=== PATIENT | female | born 1985 | race Caucasian/White ===

== ENCOUNTER 2023-06-19 07:24 | Day surgery (SDC) | payer MEDICAID, SELFPAY ==
[2023-06-19] VITALS (7 sets, daily range): BP systolic 87–111; BP diastolic 53–71; PULSE 57–73; RESP 16; TEMP 36.3–36.8; O2SAT 98–100; BMI 26.3
--- OUTSIDE RECORDS SUMMARY | 2023-06-19 07:27 | XMS_ITS | Continuity of Care Document ---
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 [address] [address], [place], [place], [id number], . tel:[phone] Referring Provider: Arely Madrid MD L, [address] [facility] [address], [place], [address] . tel:[phone] Family History Family Member Type Diagnosis Age At Onset No Information Payers Payer name Insurance type Covered constitution party ID Radha tomlinson(s) Jo-Anncasimiro [facility] [id number] Social History Type Description Quantity Date Captured Comments Sex Female Smoking Status No Information Chief Complaint And Reason For Visit No Information Reason For Referral Reason For Referral No Information History Of Present Illness Encounter Date Complaint History Of Prese nt Illness No Information Functional Status Date Functional Assessmen t No Information Instructions Date Instruction Additional Infor mation No Information Assessments Type Assessment Date No Information Patient Care Teams Name Effective Dates (start - stop) Status Members No Information
--- OUTSIDE RECORDS SUMMARY | 2023-06-19 07:27 | XMS_ITS | Continuity of Care Document ---
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 ICD K50.113. omeprazole 20 mg capsule,delayed release take 1 capsule by mouth 2 times per day before meals - Active Lexapro 10 mg tablet take 1 tablet by oral route every day 10 MG - Active Tylenol 325 mg tablet take 1 tablet by oral route once as needed 325 MG - Active Procedures Procedure Date Routine Serum Collection Routine Serum Collection Colonoscopy Flex; W/bx 1/mx Ugi Endo; W/bx 1/mx Level Iv-surg Path Gross/micro 22 Established Level 4 Routine Serum Collection Routine Serum Collection Bld Ct; Hg/pltlt Ct Auto/compl 21 Hepatic Function Panel Offic/outpt E&m Estab Mod-hi 2 20 Routine Serum Collection C-reactive Prot Vitamin D; 25 Hydroxy Sed Rate, Erythrocyte; Auto Comp Metabolic Panel Bld Ct; Hg/pltlt Ct Auto/compl 20 Telephone E&M III 21-30 Min MICHEL Offic/outpt E&m Estab Mod-hi 2 19 Init Inpt Cons New/est Mod-hi 9 Subsqt Hosp-da E&m Minr Compl 9 Offic/outpt E&m Estab Mod-hi 2 19 Routine Serum Collection Bld Ct; Hg/pltlt Ct Auto/compl 19 Comp Metabolic Panel Offic/outpt E&m Estab Mod-hi 2 19 Routine Serum Collection Bld Ct; Hg/pltlt Ct Auto/compl 19 Hepatic Function Panel C. Difficile Toxin Gene, KELLY Offic/outpt E&m Estab Mod-hi 2 19 Offic/outpt E&m Estab Low-mod 9 Routine Serum Collection Hepatic Function Panel Bld Ct; Hg/pltlt Ct Auto/compl 19 Offic/outpt E&m Estab Mod-hi 2 18 Routine Serum Collection Hepatic Function Panel Offic/outpt E&m Estab Low-mod 7 Routine Serum Collection Colonoscopy Flex; W/bx 1/mx Level Iv-surg Path Gross/micro 17 Immunocytochemistry, Each Antibody Offic/outpt E&m New Mod-hi Routine Serum Collection Ag-immunoassay; Hep B Surface 7 C-reactive Prot Comp Metabolic Panel Bld Ct; Hg/pltlt Ct Auto/compl 17 Sed Rate, Erythrocyte; Auto Advance Directives Directive Yes / No Effective Date File Name No Information Encounters Encounter Description Practice Location Reason(s) For Visit Diagnoses Date Provider Providers Copied on Encounter [facility], [address] [address], [place], [id number], [place] tel:[phone] [facility] No Information 3 Huey Yoo. [address], [place], [place], [address] , [place]. tel: [phone] [facility], [address] [address], [place], [place], [address], [place] tel:[phone] [facility] Ulcerative (chronic) pancolitis without complications 3 Huey Yoo. [address] [facility], [address], [place], [place], [address] , [place]. tel: [phone] Referring Provider: Referral Self. [facility], [address] [address], [place], [place], [address], [place] tel:[phone] [facility] Crohn's disease of large intestine without complications 2 Mercy Mcgee . [address], [address], [place], [place], [address] , [place]. tel: [phone] Referring Provider: Referral Self. [facility], [address] [address], [place], [place], [address], [place] tel:[phone] [facility] No Information 2 Mercy Mcgee . [address] [facility], [address], [place], [place], [address] , [place]. tel: [phone] [facility], [address] [address], [place], [address], [place] tel:[phone] [facility] GI Symptoms or Concerns (chief complaint) Other dysphagiaCrohn's disease of large intestine with fistulaEosinophili c esophagitisCrohn's disease of large intestine with fistula Sep- 2 Mercy Mcgee . [address], [address], [place], [place], [id number] , [place]. tel: [phone] Referring Provider: Referral Self. Established Level 4 [facility], [address] [address], [place], [address], [place] tel:[phone] [facility] GI Symptoms or Concerns (chief complaint) Additional Narrative (chief complaint) Crohn's disease of large intestine with fistulaEsophageal dysphagiaFecal smearing 2 Huey Yoo. [address], [facility] [address], [place], [place], [address] , [place]. tel: [phone] Referring Provider: Referral Self. [facility], [address] [address], [place], [address], [place] tel:[phone] [facility] No Information 2 Luda Anthony. [address] [facility], [facility] [address], [place], [place], [address] , [place]. tel: [phone] [facility], [address] [address], [place], [address], [place] tel:[phone] [facility] Ulcerative (chronic) pancolitis without complications 2 Mercy Mcgee . [address], [facility] [address], [place], [address] , [place]. tel: [phone] Referring Provider: Referral Self. [facility], [address] [address], [place], [address], [place] tel:[phone] [facility] No Information 2 Luda Anthony. [address], [facility] [address], [place], [address] , [place]. tel: [phone] [facility], [address] [address], [place], [address], [place] tel:[phone] [facility] Crohn's disease of large intestine without complications 1 Mecry Mcgee . [address], [facility] [address], [place], [address] , [place]. tel: [phone] Referring Provider: Referral Self. [facility], [address] [address], [place], [id number], [place] tel:[phone] [facility] No Information 1 Mercy Mcgee . [address], [address], [place], [id number] , [place]. tel: [phone] Offic/outpt E&m Estab Mod-hi 2 [facility], [address] [address], [place], [id number], [place] tel:[phone] [facility] GI Symptoms or Concerns (chief complaint) Additional Narrative (chief complaint) Additional Narrative (chief complaint) Crohn's disease of large intestine with fistula 0 Mercy Mcgee . [address] [facility], [facility] [address], [place], [id number] , [place]. tel: [phone] Referring Provider: Referral Self. Telephone E&M III 21-30 Min MICHEL [facility], [address] [address], [place], [id number], [place] tel:[phone] [facility] GI Symptoms or Concerns (chief complaint) Crohn's disease of colon with fistula 0 Mercy Mcgee . [address] [facility], [facility] [address], [place], [address] , [place]. tel: [phone] Referring Provider: Referral Self. [facility], [address] [address], [place], [id number], [place] tel:[phone] [facility] Crohn's disease of large intestine without complications 0 Mercy Mcgee . [address] [facility], [facility] [address], [place], [address] , [place]. tel: [phone] [facility], [address] [address], [place], [id number], [place] tel:[phone] [facility] No Information 0 Mercy Mcgee . [address] [facility], [address], [place], [id number] , [place]. [phone] Offic/outpt E&m Estab Mod-hi 2 [facility], [address] [address], [place], [id number], [place] tel:[phone] [facility] GI Symptoms or Concerns (chief complaint) Additional Narrative (chief complaint) Crohn's disease of colon with fistula 9 Mercy Mcgee . [address] [facility], [address], [place], [address] , [place]. tel:[phone] Referring Provider: Referral Self. Init Inpt Cons New/est Mod-hi [facility], [address] [address], [place], [id number], [place] tel:[phone] [facility] No Information 9 Michell LEXI Shaffer. [address] [facility], [address], [place], [id number] , [place]. tel:[phone] Referring Provider: Genesis Stack MD, [address] [place] [address], [address]. tel:[phone] [facility], [address] [address], [place], [id number], [place] tel:[phone] [facility] Perirectal abscess 9 Mercy Mcgee . [address] [facility], [address], [place], [address] , [place]. tel:[phone] [facility], [address] [address], [place], [id number], [place] tel:[phone] [facility] Rectal pain 9 Mercy Mcgee . [address] [facility], [address], [place], [address] , [place]. tel:[phone] Offic/outpt E&m Estab Mod-hi 2 [facility], [address] [address], [place], [address], [place] tel:[phone] [facility] GI Symptoms or Concerns (chief complaint) Additional Narrative (chief complaint) Ulcerative (chronic) pancolitis without complications 9 Mercy Mcgee . [address] [facility], [address], [place], [place], [address] , [place]. tel: [phone] Referring Provider: Referral Self. Offic/outpt E&m Estab Mod-hi 2 [facility], [address] [address], [place], [address], [place] tel:[phone] [facility] GI Symptoms or Concerns (chief complaint) Ulcerative (chronic) pancolitis without complications 9 Mercy Mcgee . [address] [facility], [address], [place], [place], [address] , [place]. tel: [phone] Referring Provider: Referral Self. [facility], [address] [address], [place], [address], [place] tel:[phone] [facility] Ulcerative (chronic) pancolitis without complications 9 Mercy Mcgee . [address] [facility], [facility] [address], [place], [place], [address] , [place]. tel: [phone] Referring Provider: Referral Self. Offic/outpt E&m Estab Mod-hi 2 [facility], [address] [address], [place], [address], [place] tel:[phone] [facility] GI Symptoms or Concerns (chief complaint) Ulcerative (chronic) pancolitis without complications 9 Keya Tsai. [address] [facility], [address], [facility], [place], [address] , [place]. tel: [phone] Referring Provider: Referral Self. [facility], [address] [address], [place], [address], [place] tel:[phone] [facility] Ulcerative (chronic) pancolitis without complications 9 Mercy Mcgee . [address] [facility], [address], [place], [place], [address] , [place]. tel: [phone] Offic/outpt E&m Estab Low-mod [facility], [address] [address], [place], [address], [place] tel:[phone] [facility] GI Symptoms or Concerns (chief complaint) Additional Narrative (chief complaint) Ulcerative (chronic) pancolitis without complicationsExter nal hemorrhoidsAnal fissure 9 Mercy Mcgee . [address] [facility], [address], [place], [address] , [place]. tel: [phone] Referring Provider: Referral Self. [facility], [address] [address], [place], [address], [place] tel:[phone] [facility] External hemorrhoids 9 Mercy Mcgee . [address] [facility], [address], [place], [place], [address] , [place]. tel: [phone] [facility], [address] [address], [place], [address], [place] tel:[phone] [facility] Ulcerative (chronic) pancolitis without complications 9 Mercy Mcgee . [address] [facility], [address], [place], [place], [address] , [place]. tel: [phone] Referring Provider: Referral Self. Offic/outpt E&m Estab Mod-hi 2 [facility], [address] [address], [place], [address], [place] tel:[phone] [facility] GI Symptoms or Concerns (chief complaint) Additional Narrative (chief complaint) Ulcerative (chronic) pancolitis without complications 8 Mercy Mcgee . [address] [facility], [address], [place], [address] , [place]. tel: [phone] Referring Provider: Referral Self. Offic/outpt E&m Estab Low-mod [facility], [address] [address], [place], [address], [place] tel:[phone] [facility] GI Symptoms or Concerns (chief complaint) Additional Narrative (chief complaint) Ulcerative (chronic) pancolitis without complications Mercy Mcgee . [address] [facility], [facility] [address], [place], [address] , [place]. tel: [phone] Referring Provider: Referral Self. [facility], [address] [address], [place], [address], [place] tel:[phone] [facility] Ulcerative (chronic) pancolitis without complicationsUlcer ative (chronic) pancolitis without complications Mercy Mcgee . [address] [facility], [facility] [address], [place], [address] , [place]. tel: [phone] Referring Provider: Referral Self. [facility], [address] [address], [place], [address], [place] tel:[phone] [facility] Ulcerative (chronic) pancolitis without complications Mercy Mcgee . [address] [facility], [facility] [address], [place], [address] , [place]. tel: [phone] Offic/outpt E&m [facility], [address] [address], [place], [id number], [place] tel:[phone] [facility] GI Symptoms or Concerns (chief complaint) Additional Narrative (chief complaint) Ulcerative pancolitis without complication Mercy Mcgee . [address] [facility], [facility] [address], [facility] [place], [id number] , [place]. tel: [phone] Referring Provider: Referral Self. Family History Family Member Type Diagnosis Age At Onset Father Problem (finding) Alive and well Mother Problem (finding) Alive and well Son Problem (finding) Alive and well Daughter Problem (finding) Alive and well Brother Problem (finding) Alive and well Immunizations Vaccine Date Status Comments SARS-COV-2 (COVID-19) vaccin e, mRNA, spike protein, LNP, preservative free, 100 mcg/0.5mL dose or 50 mcg/0.25mL dose administered Note: [facility] bi -directional interface ; Source: Other Registry SARS-COV-2 (COVID-19) vaccin e, mRNA, spike protein, LNP, preservative free, 100 mcg or 50 mcg dose administered Note: [facility] bi-direct ional interface ; Source: Other Registry SARS-COV-2 (COVID-19) vaccin e, mRNA, spike protein, LNP, preservative free, 100 mcg/0.5mL dose administered Note: [facility] bi-direct ional interface ; Source: Other Registry SARS-COV-2 (COVID-19) vaccin e, mRNA, spike protein, LNP, preservative free, 100 mcg/0.5mL dose or 50 mcg/0.25mL dose administered Note: [facility] bi -directional interface ; Source: Other Registry SARS-COV-2 (COVID-19) vaccin e, mRNA, spike protein, LNP, preservative free, 100 mcg or 50 mcg dose administered Note: [facility] bi-direct ional interface ; Source: Other Registry SARS-COV-2 (COVID-19) vaccin e, mRNA, spike protein, LNP, preservative free, 100 mcg/0.5mL dose administered Note: [facility] bi-direct ional interface ; Source: Other Registry tetanus toxoid, reduced diphtheria toxoid, and acellular pertussis vaccine, adsorbed administered Note: [facility] b i-directional interface ; Source: Other Registry tetanus toxoid, reduced diphtheria toxoid, and acellular pertussis vaccine, adsorbed administered Note: [facility] b i-directional interface ; Source: Other Registry tetanus toxoid, reduced diphtheria toxoid, and acellular pertussis vaccine, adsorbed administered Note: [facility] b i-directional interface ; Source: Other Registry Payers Payer name Insurance type Covered green party ID Radha tomlinson(s) [employer] [facility] [id number] Social History Type Description Quantity Date Captured Comments Alcohol Use Details Unknown Caffeine Use Details Unknown Tobacco Use Status No Information Smoking Status No Information Sex Female Chief Complaint And Reason For Visit No Information Reason For Referral Reason For Referral No Information Plan Of Treatment Date Type Action Status Referral Ordered: EGD With Dilation Appointment date/timeframe: 07/16/2022 ordered Referral Ordered: referred to Otolaryngology oral ulcers- humira vs infection ordered Referral Ordered: follow-up visit 4 Months Appointment date/timeframe: 4 Months ordered Referral Ordered: Financial Counselor Review Appointment date/timeframe: -today ordered Referral Ordered: Flexible Sigmoidoscopy Appointment date/timeframe: -today ordered Referral Ordered: referred to Colon and Rectal Surgery external hemorrhoids ordered Referral Ordered: Start IBD Disease Management Protocol Appointment date/timeframe: -today ordered Referral Ordered: Colonoscopy Appointment date/timeframe: 06/02/2017 ordered Appointment Caroline Rajan BOOKED History Of Present Illness Encounter Date Complaint History Of Prese nt Illness GI Symptoms or Concerns Additional Narrative Diagnosis- Crohn's colitis, penetrating phenotypeEvaluation:Diagnosis at age 19 on colonoscopy, reportedly pancolitis. +ulcers but no chronic features. No treatment started.Colonoscopy 03/07 ([place])- pancolitis with severe active colitis in left colon; +diverticulosis sigmoid/descending/transverse; hepatic flexure stricture; path with normal TI, path throughout colon with active colitis and scarring; no dysplasia; negative for CMV.Thiopurine metabolities 09/06: 6-TGN 269, 6-MMPN 1551Sigmoidoscopy 02/05: moderately severe colitis throughout on azathioprine; Uceris startedColonoscopy 06/09: moderate colitis in the rectosigmoid; otherwise normal with mild scarring in descending/transverseAdalimumab level 2016: 2.3 (low) with negative antibodyAdalimumab level 2018: 5.1 with negative antibodyTwo surgeries for perianal fistulae in 10/12- diagnosis revised to Crohn's diseaseSurgery for perianal fistula 04/12, including colonoscopy by [facility]- chronic colitis in rectum/sigmoid on pathPerianal fistula surgery and seton placement 03/2021Treatment: No treatment at initial diagnosis in - post iron deficiency anemia, prednisone taper followed by Colazal. 2007- recurrent symptoms, fast prednisone taper --> prolonged [id number]- started remicade (+colazal)2010- stopped remicade at end of 2nd ; restarted one year later (no antibodies checked) but developed infusion reaction with rash, itching, hives, and ER visit. 2013- prednisone taper, lialda, canasa, and proctofoam; likely started azathioprine + Humira later that - Uceris added after sigmoidoscopy; stopped azathiprine 10/08 before she became current treatment: Humira 40mg every 2 weeks with lialda 4.8 g2- flare during , incomplete response to budesonide; prednisone low dose (20mg to avoid insomnia) only partially effective.Health Maintenance:No known bone densityLast flu shot- 2017Vitamin D- 23.4 04/09Quantiferon- negative 02/2021Hepatitis B- negative 04/09Pneumovax- does not believe she has received beforeShingles vaccine - not receivedSkin check - none GI Symptoms or Concerns 36-year- old woman with history of Crohn's colitis with fistulizing disease, perivaginal lesions, mouth sores, who presents for a virtual visit for routine follow-up and medication refill. She is normally followed by Dr. Madrid again in our clinic, and was last seen for a clinic visit on 09/20/2020. She does report to me a new symptoms of esophageal dysphagia with foods occasionally over the last 6 months. She reports she has had the vomit back food a couple times. She denies any odynophagia, unexplained weight loss, early satiety, reflux symptoms. She is not taking any new medications. She has never had dysphagia symptoms in the past. She continues to have fistula symptoms every few weeks. She had a fistula surgery and seton placement most recently 1 year ago in 03/2021. She has not had any major issue since then, but every few weeks she does feel little bit of swelling in that area which then drained spontaneously through the fistula with seton. If Her other comp Additional Narrative Diagnosis- Crohn's colitis, penetrating phenotypeEvaluation:Diagnosis at age 19 on colonoscopy, reportedly pancolitis. +ulcers but no chronic features. No treatment started.Colonoscopy 03/07 ([place])- pancolitis with severe active colitis in left colon; +diverticulosis sigmoid/descending/transverse; hepatic flexure stricture; path with normal TI, path throughout colon with active colitis and scarring; no dysplasia; negative for CMV.Thiopurine metabolities 09/06: 6-TGN 269, 6-MMPN 1551Sigmoidoscopy 02/05: moderately severe colitis throughout on azathioprine; Uceris startedColonoscopy 06/09: moderate colitis in the rectosigmoid; otherwise normal with mild scarring in descending/transverseAdalimumab level 2016: 2.3 (low) with negative antibodyAdalimumab level 2018: 5.1 with negative antibodyTwo surgeries for perianal fistulae in 10/12- diagnosis revised to Crohn's diseaseSurgery for perianal fistula 04/12, including colonoscopy by [facility]- chronic colitis in rectum/sigmoid on pathTreatment: No treatment at initial diagnosis in - post iron deficiency anemia, prednisone taper followed by Colazal. 2007- recurrent symptoms, fast prednisone taper --> prolonged [id number]- started remicade (+colazal)2010- stopped remicade at end of 2nd ; restarted one year later (no antibodies checked) but developed infusion reaction with rash, itching, hives, and ER visit. 2013- prednisone taper, lialda, canasa, and proctofoam; likely started azathioprine + Humira later that - Uceris added after sigmoidoscopy; stopped azathiprine 10/08 before she became current treatment: Humira 40mg every 2 weeks with lialda 4.8 g2019- flare during , incomplete response to budesonide; prednisone low dose (20mg to avoid insomnia) only partially effective.Health Maintenance:No known bone densityLast flu shot- 2017Vitamin D- 23.4 04/09Quantiferon- negative 2018Hepatitis B- negative 04/09Pneumovax- unknown Additional Narrative GI Symptoms or Concerns This is a 35-year-old woman who presents in followup for Crohn's colitis, penetrating phenotype. She was initially diagnosed with ulcerative colitis, but then developed perianal symptoms including multiple fistulae during her 1 year ago. She had 2 surgeries in September and her most recent surgery on April 14. Colonoscopy at that time showed inflammation in the rectum and sigmoid with chronic inflammation. Her last followup with Colorectal Surgery was in June. At that time, she was still recovering from her surgery. Her Humira level has been low on 2 occasions and we have discussed increasing to weekly dosing. However, she deferred on that because she has been reluctant to take in more immunosuppressant therapy if possible. However, she feels that she is having worsening drainage and swelling with bowel movements now again. It is not nearly as bad as it was last fall, but she is worried there is some untreated infection present. She does not yet have a followup with GI Symptoms or Concerns This is a 34-year-old woman who presents in follow up for Crohn's colitis, fistulizing phenotype. She has a prior diagnosis of ulcerative colitis. However, she was subsequently diagnosed with perianal symptoms including multiple fistulae, during her last fall. She had surgery for this in September, on 2 occasions and then most recently on April 14. She had a colonoscopy performed at the same time and was found to have inflammation in the rectum and sigmoid colon. Biopsies showed chronic inflammation with cryptitis and crypt abscess formation in these areas as well as granulation tissue with [id number] inflammation in the fistula tracts. She does report improved symptoms since her surgery. She does have another followup appointment on May 30. She still has severe pain after having bowel movements such that she will be in [place] for 5 to 6 hours afterwards. 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 She is currently 26 weeks . She has a prior diagnosis of ulcerative pancolitis with details as noted below. She has had her first flare in nearly 5 years during this . She had ongoing perianal-type symptoms for many months and we had initially discussed referral to Colorectal Surgery, but this was deferred when she found out she was . She had some response to budesonide and low-dose prednisone. However, she has also had ongoing Humira therapy since 2014.Her diagnosis has been revised to her Crohn's colitis based on the development of perianal fistula and abscesses. She had surgery for this in early September and then repeat surgery 13 days ago, due to persistent abscesses. She completed antibiotics 1 week ago.With regard to her colitis, she feels great. She does not have the bleeding or diarrhea symptoms. However, she is still having a numbing sensation down the right leg when she has a maria teresa Additional Narrative Diagnosis- Crohn's colitis, penetrating phenotype (revised from ulcerative pancolitis in Fall 2018)Evaluation:Diagnosis at age 19 on colonoscopy, reportedly pancolitis. +ulcers but no chronic features. No treatment started.Colon[place]07 ([place])- pancolitis with severe active colitis in left colon; +diverticulosis sigmoid/descending/transverse; hepatic flexure stricture; path with normal TI, path throughout colon with active colitis and scarring; no dysplasia; negative for CMV.Thiopurine metabolities 09/06: 6-TGN 269, 6-MMPN 1551Sigmoidoscopy 02/05: moderately severe colitis throughout on azathioprine; Uceris startedColonoscopy 06/09: moderate colitis in the rectosigmoid; otherwise normal with mild scarring in descending/transverseAdalimumab level 2016: 2.3 (low) with negative antibodyAdalimumab level 09/11: 5.1 (low normal) with negative antibodyMRI pelvis 10/12: multiple perianal abscessesSurgery x 2 10/12: drainage of abscessesTreatment: No treatment at initial diagnosis in - post iron deficiency anemia, prednisone taper followed by Colazal. 2007- recurrent symptoms, fast prednisone taper --> prolonged [id number]- started remicade (+colazal)2010- stopped remicade at end of 2nd ; restarted one year later (no antibodies checked) but developed infusion reaction with rash, itching, hives, and ER visit. 2013- prednisone taper, lialda, canasa, and proctofoam; likely started azathioprine + Humira later that - Uceris added after sigmoidoscopy; stopped azathiprine 10/08 before she became current treatment: Humira 40mg every 2 weeks with lialda 4.8 g2- flare during , incomplete response to budesonide; prednisone low dose (20mg to avoid insomnia) only partially effective.10/12: Humira held due to perianal abscesses; slow prednisone taper continuedHealth Maintenance:No known bone densityLast flu shot- 2017Vitamin D- 23.4 04/09Quantiferon- negative 2018Hepatitis B- negative 04/09Pneumovax- unknown Additional Narrative Additional Narrative Diagnosis- ulcerative pancolitisEvaluation:Diagnosis at age 19 on colonoscopy, reportedly pancolitis. +ulcers but no chronic features. No treatment started.Colonoscopy [place]07 ([place])- pancolitis with severe active colitis in left colon; +diverticulosis sigmoid/descending/transverse; hepatic flexure stricture; path with normal TI, path throughout colon with active colitis and scarring; no dysplasia; negative for CMV.Thiopurine metabolities 09/06: 6-TGN 269, 6-MMPN 1551Sigmoidoscopy 02/05: moderately severe colitis throughout on azathioprine; Uceris startedColonoscopy 06/09: moderate colitis in the rectosigmoid; otherwise normal with mild scarring in descending/transverseAdalimumab level 2017: 2.3 (low) with negative antibodyTreatment: No treatment at initial diagnosis in - post iron deficiency anemia, prednisone taper followed by Colazal. 2007- recurrent symptoms, fast prednisone taper --> prolonged [id number]- started remicade (+colazal)2010- stopped remicade at end of 2nd ; restarted one year later (no antibodies checked) but developed infusion reaction with rash, itching, hives, and ER visit. 2013- prednisone taper, lialda, canasa, and proctofoam; likely started azathioprine + Humira later that - Uceris added after sigmoidoscopy; stopped azathiprine 10/08 before she became current treatment: Humira 40mg every 2 weeks with lialda 4.8 g2019- flare during , incomplete response to budesonide; prednisone low dose (20mg to avoid insomnia) only partially effective.Health Maintenance:No known bone densityLast flu shot- 2017Vitamin D- 23.4 04/09Quantiferon- negative 2018Hepatitis B- negative 04/09Pneumovax- unknown GI Symptoms or Concerns This is a 34-year-old woman who presents in followup. She has a history of ulcerative pancolitis on Humira therapy every other week. Unfortunately, during this most recent , she has had a significant flare, the first in about 5 years. She has had difficulty gaining weight. She is currently 20 weeks and reports having a good ultrasound today showing healthy baby. For the flare, we have initially addressed that with Rowasa enema, but it caused pain in her known hemorrhoids. We tried budesonide therapy with incomplete response. We then tried prednisone 20 mg daily due to history of insomnia with higher dose prednisone. She reports that the stools are slightly more formed, like soft serve, but there is still blood and mucus as well as significant abdominal pain. She is having 3 stools per day. She feels ill in general. Her last Humira dose was 2 weeks ago. She had negative Clostridium difficile testing on July 21.The hemorrhoids continued to be symptomatic GI Symptoms or Concerns This is a 34-year-old woman, who has a history of ulcerative pancolitis, presents in followup. She is currently 16 weeks' with her fifth child. She has had a flare in middle of multiple stressors including a divorce and an unplanned with her current boyfriend. She reports that the has been going well, but that she is surprised by the flare as she typically has improved symptoms during . She suspects that stress has been a trigger for her. She has been treated with Humira every other week since 2013. She saw one of my colleagues in followup on July 20 and was started on Uceris. Unfortunately, it was not initially covered by insurance and she only started it 1 week ago. She does feel that symptoms are slowly improving. She has had negative stool testing for Clostridium difficile infection and stool culture. Her weight is down 2 pounds since the last visit and she attributes this to eating less. However, she does not have significant nause GI Symptoms or Concerns This is a pleasant 34-year-old female who presents to clinic today as an urgent appointment for ulcerative colitis flare.The patient is notably 12 weeks' . She has a history of ulcerative pancolitis diagnosed at age 19. She is currently on biweekly Humira monotherapy. She has been on Humira since 2013. She typically follows with Dr. Madrid through our office. Please see Dr. Madrid's note from March 2019 for additional ulcerative colitis history.Patient is currently in the process of going through a divorce. She became and it was unplanned. This is obviously stressful for her and she believes this triggered colitis flare. She notes that since the beginning of May, she started to have progressive ulcerative colitis flare symptoms. Currently, she is having 5 to 10 liquid to loose stools per day with minimal, intermittent rectal bleeding. She is passing mucus in the stool and having rectal urgency. She notes abdominal cramping and lower abdominal cramping Additional Narrative Diagnosis- ulcerative pancolitisEvaluation:Diagnosis at age 19 on colonoscopy, reportedly pancolitis. +ulcers but no chronic features. No treatment started.Colon[place]07 ([place])- pancolitis with severe active colitis in left colon; +diverticulosis sigmoid/descending/transverse; hepatic flexure stricture; path with normal TI, path throughout colon with active colitis and scarring; no dysplasia; negative for CMV.Thiopurine metabolities 09/06: 6-TGN 269, 6-MMPN 1551Sigmoidoscopy 02/05: moderately severe colitis throughout on azathioprine; Uceris startedColonoscopy 06/09: moderate colitis in the rectosigmoid; otherwise normal with mild scarring in descending/transverseTreatment: No treatment at initial diagnosis in - post iron deficiency anemia, prednisone taper followed by Colazal. 2007- recurrent symptoms, fast prednisone taper --> prolonged [id number]- started remicade (+colazal)2010- stopped remicade at end of 2nd ; restarted one year later (no antibodies checked) but developed infusion reaction with rash, itching, hives, and ER visit. 2013- prednisone taper, lialda, canasa, and proctofoam; likely started azathioprine + Humira later that [id number]- Uceris added after sigmoidoscopy; stopped azathiprine 10/08 before she became current treatment: Humira 40mg every 2 weeks with lialda 4.8 gHealth Maintenance:No known bone densityLast flu shot- 2016Vitamin D- 23.4 04/09Quantiferon- negative 04/09Hepatitis B- negative 04/09Pneumovax- unknown GI Symptoms or Concerns This is a 33-year-old woman, who presents in followup for ulcerative pancolitis. I last saw her a year ago when she was in her third trimester of . She gave to a healthy girl by . This was her fourth child. Unfortunately since childbirth, she has been having a lot of issues with what she believes are hemorrhoids. She has 1 stool per day and they are typically soft or mushy. There is intermittent blood on the surface of the stool or with wiping. She wonders if she is having a mild flare of her colitis. However, there is pain around the anus and she can have pain shooting down her leg after having a stool. This occurs every day. There is no issue with her spine or hip joints that she is aware of. She has not been diagnosed with any fissures. She saw a colorectal surgeon, who stated she could not have any hemorrhoid treatment because of her history of ulcerative colitis. Her last colonoscopy in May 2017 showed moderate colitis in the rectosigmoid, but ot GI Symptoms or Concerns This is a 32-year-old woman who presents in followup for ulcerative pancolitis. I last saw her in June of last year. She was diagnosed at age 19. I have captured her prior evaluation and treatment below. She has been on Humira every other week. At last visit, she was having some breakthrough symptoms and we had checked a Humira level and antibody. Unfortunately, her drug level was very low with treatment, although she did not have a positive antibody. She had been considering another and actually became shortly thereafter. I have not seen her since nor was I aware that she was until she made this appointment. We had missing labs and therefore were unable to refill her Humira prescription. Her last dose was on March 13. She reports that her symptoms actually improved significantly at 20 weeks gestation as it has in the past and she is not having any active symptoms of diarrhea, pain or bleeding. She still has some hemorrhoids including one exte Additional Narrative Diagnosis- ulcerative pancolitisEvaluation:Diagnosis at age 19 on colonoscopy, reportedly pancolitis. +ulcers but no chronic features. No treatment started.Colonoscopy [place]/07 ([place])- pancolitis with severe active colitis in left colon; +diverticulosis sigmoid/descending/transverse; hepatic flexure stricture; path with normal TI, path throughout colon with active colitis and scarring; no dysplasia; negative for CMV.Thiopurine metabolities 09/06: 6-TGN 269, 6-MMPN 1551Sigmoidoscopy 02/05: moderately severe colitis throughout on azathioprine; Uceris startedColonoscopy 06/09: moderate colitis in the rectosigmoid; otherwise normal with mild scarring in descending/transverseTreatment: No treatment at initial diagnosis in - post iron deficiency anemia, prednisone taper followed by Colazal. 2007- recurrent symptoms, fast prednisone taper --> prolonged [id number]- started remicade (+colazal)2010- stopped remicade at end of 2nd ; restarted one year later (no antibodies checked) but developed infusion reaction with rash, itching, hives, and ER visit. 2013- prednisone taper, lialda, canasa, and proctofoam; likely started azathioprine + Humira later that - Uceris added after sigmoidoscopy; stopped azathiprine 10/08 before she became current treatment: Humira 40mg every 2 weeks with lialda 4.8 gHealth Maintenance:No known bone densityLast flu shot- 2015Vitamin D- 23.4 04/09Quantiferon- negative 04/09Hepatitis B- negative 04/09Pneumovax- unknown Additional Narrative Diagnosis- ulcerative pancolitisEvaluation:Diagnosis at age 19 on colonoscopy, reportedly pancolitis. +ulcers but no chronic features. No treatment started.Colonoscopy 03/07 ([place])- pancolitis with severe active colitis in left colon; +diverticulosis sigmoid/descending/transverse; hepatic flexure stricture; path with normal TI, path throughout colon with active colitis and scarring; no dysplasia; negative for CMV.Thiopurine metabolities 09/06: 6-TGN 269, 6-MMPN 1551Sigmoidoscopy 02/05: moderately severe colitis throughout on azathioprine; Uceris startedColonoscopy 06/09: moderate colitis in the rectosigmoid; otherwise normal with mild scarring in descending/transverseTreatment: No treatment at initial diagnosis in - post iron deficiency anemia, prednisone taper followed by Colazal. 2007- recurrent symptoms, fast prednisone taper --> prolonged [id number]- started remicade (+colazal)2010- stopped remicade at end of 2nd ; restarted one year later (no antibodies checked) but developed infusion reaction with rash, itching, hives, and ER visit. 2013- prednisone taper, lialda, canasa, and proctofoam; likely started azathioprine + Humira later that - Uceris added after sigmoidoscopy; stopped azathiprine 10/08 before she became current treatment: Humira 40mg every 2 weeks with lialda 2.4 gHealth Maintenance:No known bone densityLast flu shot- 2015Vitamin D- 23.4 04/09Quantiferon- negative 04/09Hepatitis B- negative 04/09Pneumovax- unknown GI Symptoms or Concerns This is a 32-year-old woman, who presents in followup for ulcerative pancolitis. She was diagnosed at age 19, and I have captured majority of her prior treatment and evaluations below. She presents in followup after recent colonoscopy, which showed active disease in the rectum and sigmoid. She has been taking Lialda only intermittently together with her Humira and has not noticed a significant improvement in symptoms when she is taking the Lialda two pills per day now. She often has some blood with her stools. She does have hemorrhoids as well by her report. They were not seen on the exam specifically. She does not have a stool even every day and they can be variable in consistency. When she has her menstrual cycle, she will have significant worsening of symptoms during the first two days of her menses. She has a lot of pain, is unable to function and has a bulging pressure even into the thighs that occurs at that point. She has had three children and continues to have unprot GI Symptoms or Concerns This is a 31-year-old woman, who presents to [facility]. She has a prior diagnosis of ulcerative pancolitis. This was diagnosed at the age of 19, although initially she did not have any treatment. I tried to capture the results that I have from her prior evaluation in my note. She has been treated with balsalazide, but ultimately moved to Remicade. She had an infusion reaction after restarting it after about a year without Remicade, and then transitioned to Humira and azathioprine. She stopped the azathioprine before her third and has done quite well on the Humira every other week. She reports for the past two months, she feels that she is having a mild flare. There is some blood intermittently. She typically has up to two stools per morning. This is inconsistent and there is no abdominal pain. Her energy is good and she denies tenesmus. Symptoms seem to worsened just before her menstrual cycle. She continues to nurse a nine-month old and plans to continue nursi Additional Narrative Diagnosis- ulcerative pancolitisEvaluation:Diagnosis at age 19 on colonoscopy, reportedly pancolitis. +ulcers but no chronic features. No treatment started.Colonoscopy 03/07 ([place])- pancolitis with severe active colitis in left colon; +diverticulosis sigmoid/descending/transverse; hepatic flexure stricture; path with normal TI, path throughout colon with active colitis and scarring; no dysplasia; negative for CMV.Thiopurine metabolities 09/06: 6-TGN 269, 6-MMPN 1551Sigmoidoscopy 02/05: moderately severe colitis throughout on azathioprine; Uceris startedTreatment: No treatment at initial diagnosis in - post iron deficiency anemia, prednisone taper followed by Colazal. 2007- recurrent symptoms, fast prednisone taper --> prolonged [id number]- started remicade (+colazal)2010- stopped remicade at end of 2nd ; restarted one year later (no antibodies checked) but developed infusion reaction with rash, itching, hives, and ER visit. 2013- prednisone taper, lialda, canasa, and proctofoam; likely started azathioprine + Humira later that - Uceris added after sigmoidoscopy; stopped azathiprine 10/08 before she became current treatment: Humira 40mg every 2 weeks Health Maintenance:No known bone densityLast flu shot- 2015Vitamin D- pendingQuantiferon- [place]neumovax- unknown if received Functional Status Date Functional Assessmen t No Information Instructions Date Instruction Additional Infor micah Eosinophilic Esophagitis Related to Other dysphagia 1. Esophageal dyspha amandeep. - schedule upper endoscopy with esophageal biopsies and dilation. 2. Crohn's disease with fistulizing disease. - continue adalimumab every 2 weeks for now. -we will assess for active disease on endoscopies. - consider medication changes, including possible addition of thigh appearing and increasing frequency of adalimumab every week if there is evidence of active inflammation on colonoscopy or if continued recurrent fistula symptoms. -follow-up in 1 year. 3. Stool leakage after bowel movements. - continue pelvic floor exercises. -if no improvement with pelvic floor exercises, would contact colorectal surgery again. 4. Health maintenance. -pneumonia vaccines at next in person visit -yearly flu vaccine recommended - shingles vaccine ( shingrix) recommended - skin check with dermatology recommended. Related to Crohn's disease of large intestine with fistula We will check basic blood work today including chemistries, vitamin D level, inflammatory markers, and also check her adalimumab level. This is 10 days from her prior injection and will give us a good idea of her trough level. I will refer her to ENT for further evaluation of her mouth sores and she will also follow up with Colorectal Surgery and Gynecology. I would like her to update me with regard to these upcoming appointments and then once she is cleared of active infection by Colorectal Surgery, and ENT is waiting on the possibility for drug-related oral ulcers, we can consider increasing her Humira to weekly dosing. This has already been approved by insurance as of March 31. Followup will be in 3 months, although further recommendations will come after the above referrals have been completed. Related to Crohn's disease of large intestine with fistula We discussed various aspects to pain management for her. A tricyclic medication could help with nerve signaling, but unfortunately is contraindicated with nursing. There is the option for gabapentin as well. I am very hesitant to recommend narcotic therapy aside from just related to her postoperative recovery and I defer this to her surgeon. Down the road, especially if she has fully recovered from the surgery itself, I do believe we may need to increase her Humira to weekly dosing to achieve better therapeutic benefit. This could possibly help with her pain, as we reduce inflammation.We will plan to have her touch base with me following her upcoming appointment with her surgeon. Followup will be in fall, although further recommendations will come after we get input from her surgeon. Related to Crohn's disease of colon with fistula I recommended that s he follow up with her colorectal surgeon and director cost today and then inform me of their recommendations. In particular, I defer to the colorectal surgeon on when to start Humira, based on their assessment of the prior infection and its resolution. Assuming that we restart it in the coming week, we would then plan to continue until about 36 weeks when she would discontinue, in anticipation for a delivery via at 39 weeks.She will continue to slowly taper her prednisone as she has been doing. She is currently at 20 mg daily. Next week, she will taper to 15 mg and as long as she continues to do well with regard to her bowel symptoms, we will continue the taper as tolerated.If she has persistent fistulae and abscesses at her current Humira dose, we may need to consider weekly dosing. Her last level was in the lower range at 5.1 with a negative antibody. Of course, this has been deferred due to the aforementioned infection. I will plan to see her again in 8 weeks in followup. Related to Crohn's disease of colon with fistula I will check stool f or C. diff infection. I will perform basic blood work today including blood counts, chemistries and liver tests. We will also check adalimumab level and antibody. We will increase her prednisone therapy to 40 mg daily for 2 weeks and then taper by 5 mg each week. In the meanwhile, if her adalimumab level is low, I would consider increasing the frequency of her Humira to inject every week rather than every 2 weeks. I will arrange for followup appointment in clinic in about a month to review her response to the above.If she becomes dizzy, weak or has worsening symptoms, she would need to go to the hospital. We discussed the possibility for intravenous steroids or even a sigmoidoscopy to evaluate for CMV infection and to assess ongoing inflammation. I am hopeful that we will not have to perform endoscopic evaluation during her , but this is something to consider for the future. Related to Ulcerative (chronic) pancolitis without complications We will continue her Humira at the current dose every other week. We will continue her Uceris 9 mg daily. I have asked her to contact me with an update in 1 to 2 weeks. If she is not responding to Uceris, we may need to change to prednisone. I would consider a lower dose of 20 mg daily because she has had previous anxiety and sleep deprivation with higher dose prednisone. Certainly, the other option is to increase Humira frequency to every week. However, we both agreed that we would save that for down the road if symptoms persist. We also discussed the possibility for a sigmoidoscopy at the hospital, should she fail treatments, to perform biopsies for CMV and to assess severity of disease. I will plan to see her again in 6 weeks and then again in 12 weeks.Her current delivery is planned for 39 weeks with section. We will try to time her final Humira injection for around 27 weeks, so that her levels are at the lowest possible for the delivery itself. We would then restart treatment as long as there are no complications from the section. She is aware that her will not be able to receive live vaccinations for 6 months after delivery.Thank you for involving me in her care. Related to Ulcerative (chronic) pancolitis without complications I reviewed the optio n of topical mesalamine, which would be safe in . The patient does not believe she will be able to retain enemas and this likely will cause her significant increased rectal discomfort. She is willing to try a few enemas to see how she tolerates it. I was able to contact Dr. Madrid regarding this patient. After review, treatment with Uceris was recommended. It is of note prescription for 8-week course, however, this can be tapered quicker if needed. I recommended a close followup with Dr. Madrid in 3 weeks. Our office will help arrange. I also stressed the importance of collecting stool sample to rule out C. diff and routine enteric pathogens. She reports that it would be very difficult for her to send in the sample, but she will try her best. Related to Ulcerative (chronic) pancolitis without complications I would like to aide t her anal fissure with nifedipine ointment as well as topical lidocaine for discomfort. After 3 to 4 weeks, I have asked her to contact me with an update on symptoms. Her stools are already soft and so I do not see the need to add a stool softener or change in fiber. If she continues to have external symptoms from the hemorrhoids themselves, I would recommend a sigmoidoscopy to evaluate for underlying rectal inflammation. There is no underlying rectal inflammation. There is a possibility to see another colorectal surgeon to discuss whether there are any treatments for the hemorrhoids that could be considered, such as surgery or banding. This is very difficult because of the underlying inflammatory disease. Our group does not recommend hemorrhoid banding in that case, but I do know it is the fact that she is having significant symptoms and that we should consider all options for her to help with quality of life. Related to Ulcerative (chronic) pancolitis without complications We will perform lab work today. We discussed the pros and cons of an additional dose of Humira. I would like to see what the labs show and then she will contact her pharmacist to see when the earliest would be that she could receive her prescription. We discussed the possibility for 1 final injection at about 35 to 36 weeks and then plan for delivery. Once she is recovered from her caesarean section and her clean up worker agrees and we can restart Humira again as an outpatient. It is believed to be compatible with nursing and we discussed this. Certainly, her will not be able to receive any live vaccinations until 6 months of age because some medication may cross the placenta. I have arranged for followup as noted below. I have asked her to keep in touch if any symptoms change to suggest a flare. Normally, I would have insisted that we see each other during the 2nd trimester to help plan some of these medication changes and so I feel I was a bit surprised by her and so late into her 3rd trimester that it is a little more difficult to come up with a clear plan for her. Related to Ulcerative (chronic) pancolitis without complications We will continue her Humira for now, although she will try injections in her thigh to see if that is better tolerated. We will continue her Lialda at the current dose and I have advised that we try Rowasa enemas for several weeks to see if that is tolerated and helps with symptoms. If not, we could consider hydrocortisone enemas. Otherwise, the next step would be to increase her Lialda to four pills per day to see if that is helpful. In the meanwhile, we will check a Humira level and antibody today because she is due for her next injection now and we can get a good evaluation of her trough level. If she stops having the injection site reactions by changing the location of injections, and her trough level is very low, but there is no antibody, I would consider increasing her dosing to every week. If she has developed antibodies and continues to have injection site reactions such that we need to consider other medications, I would consider looking into Entyvio and we briefly discussed this today. I have arranged for a followup appointment in six months for routine maintenance, although further recommendations will follow the results of her lab testing and the medication change. If she has ongoing symptoms, of course, I will see her sooner, as quickly as one to two months from now.For next visit, especially once we have achieved a sense of remission, I will need to confirm her Pneumovax status and bone density testing. She is also going to look into our handout on inflammatory bowel disease and nutrition to see if she can find any triggers for her. We briefly discussed turmeric and VSL #3, which have been looked at as adjuvant therapies for ulcerative colitis in some patients with milder disease. Related to Ulcerative (chronic) pancolitis without complications IBD and Nutrition Related to c erative (chronic) pancolitis without complications Entyvio (vedolizumab) Related to Ulcerative (chronic) pancolitis without complications Colon Cancer Prevention Related to Ulcerative (chronic) pancolitis without complications I will need to revie w further records from the past including her vaccination status, bone density testing, and lab work. We will recheck basic labs today as well as inflammatory markers, vitamin D level, and her QuantiFERON Gold and hepatitis B status. Once her QuantiFERON and hepatitis B status are clarified, we can send her for Humira prescription. I will start her back on Lialda 2.4 g daily with a plan to increase up to 4.8 g daily as tolerated. I will also arrange for a surveillance colonoscopy exam for dysplasia biopsies to occur in the next several months. I will plan to see her again in about three months' time to see how she is doing. I will address bone density testing with her next visit, if it has not been performed previously and we will also clarify her Pneumovax status. I have asked her to contact me should anything worsen with her symptoms. I did give her stool chemistries today to check for infection should the diarrhea worsen. Related to Ulcerative pancolitis without complication Colonoscopy Related to Ulcer ative (chronic) pancolitis without complications Assessments Type Assessment Date No Information Patient Care Teams Name Effective Dates (start - stop) Status Members No Information
[2023-06-19] MEDS: LACTATED RINGERS 1000 ML 1,000 ML 100 ML IV (07:35)
[2023-06-19 08:01] LABS: Ur HCG Qualitative* Negative (Negative)
[2023-06-19] MEDS: SODIUM CHLORIDE 0.9 % (FLUSH) 10 ML SYRINGE IVF (08:13)
--- NOTE | 2023-06-19 08:27 | W.PM.H&PU ---
History & Physical Update History & Physical Update H&P Reviewed and patient assessed: No changes noted H&P Updates: Gen - NAD Heart - RRR / no M/R/G Lungs - CTAB
--- NOTE | 2023-06-19 09:35 | W.ANESCHARGE ---
Anesthesia Charges Start Date/Time Anesthesia Start Date: 06/19/23 Anesthesia Start Time: 09:13 Stop Date/Time Anesthesia Stop Date: 06/19/23 Anesthesia Stop Time: 10:02
[2023-06-19] MEDS: LIDOCAINE 1% MDV 10 ML INJECTION (09:47)
--- NOTE | 2023-06-19 09:54 | W.ANESCHARGE ---
Anesthesia Charges Start Date/Time Anesthesia Start Date: 06/19/23 Anesthesia Start Time: 09:13 Stop Date/Time Anesthesia Stop Date: 06/19/23 Anesthesia Stop Time: 10:02
--- NOTE | 2023-06-19 10:06 | W.PM.GYNPROC ---
Procedure Note Date of procedure: 06/19/23 Pre-op diagnosis: Persistent intermenstrual spotting, suspected endometrial polyps on recent Post-op diagnosis: other ( persistent intermenstrual spotting) Procedure: Hysteroscopy, dilation and curettage, insertion of Mirena IUD Anesthesia: MAC and local ( paracervical block with 10 mL of 1% lidocaine) Complications: none Surgeon: Dr. Angelita Gonzalez MD Estimated blood loss (mL): 5 IV fluids (mL): 500 Urine Output (mL): 50 Pathology: specimen obtained, sent to pathology Condition: stable Disposition: same day Findings: 1. Upon pelvic exam under anesthesia, vagina and cervix were normal in appearance. Uterus was mobile, anteverted, and of normal size and texture. There were no palpable Adnexal masses. 2. Upon Hysteroscopy, survey the endocervix was normal. Survey of the uterus revealed an irregular texture or of the endometrium. The endometrial cavity shape was normal, as were bilateral tubal ostia. Uterus sounded to 10 cm. Procedure Description: Saline deficit: 305 mL Procedure in detail: Patient was taken to the operating room with IV running. She was positioned in dorsal lithotomy position with her legs fully supported in Yellofin stirrups. Monitored anesthesia care was administered. She was prepped and draped in the usual sterile fashion. Exam under anesthesia was performed for the above-noted findings. Speculum was inserted. Cervix visualized and grasped along the anterior lip with An Allis clamp. Cervix was serially dilated to accommodate the TRUCLEAR hysteroscope. This was assembled with saline inflow and outflow in place. The hysteroscope was advanced through the cervix into the endometrial cavity for the above noted findings. The tissue morcellator was then inserted through the operating channel. Window lock was performed. Under direct visualization, the endometrial cavity was circumferentially curetted with the tissue morcellator. The hysteroscope and morcellator were then removed from the uterus. Uterus sounds to 10 cm. The IUD is loaded into the insertion tube, inserted to the sounded depth, and the IUD is deployed. Insertion tube was removed. Strings are trimmed to 3 cm. Allis clamp was removed from the anterior lip of the cervix. Hemostasis was noted. Patient tolerated procedure well. She was taken to recovery area in stable condition.
--- NOTE | 2023-06-19 12:10 | SUR.PHASEII ---
Patient contacted by telegraphic typewriter operator via phone notifying her that Dr. Gonzalez had electronically sent in hydrocodone[facility]aminophen [facility]. Gonzalez stated she had not found any polyps, relayed to patient. Per Dr. Gonzalez, patient may resume intimacy after post op 2 weeks for mirena to be effective.
== END 2023-06-19 11:18 | disposition home or self-care (01) ==
PROVIDERS: PCP Physician Assistant Medical; Visit Provider Obstetrics & Gynecology
PROC: 0UDB8ZZ Extraction of Endometrium, Via Natural or Artificial Opening Endoscopic (ICD-10-PCS; CPT 58558; principal; 2023-06-19 08:45)
DX: N92.0 Excessive and frequent menstruation with regular cycle (principal); Z30.430 Encounter for insertion of intrauterine contraceptive device
CPT/HCPCS: 58300; 58558; 00952; 36415; 81025; 86850; 86900; 86901; 88305; J1100; J1885; J2250; J2405; J2704; J3010; J7120; J7298

== ENCOUNTER 2024-06-23 11:54 | Outpatient (CLI) | payer OTHER, SELFPAY ==
--- OUTSIDE RECORDS SUMMARY | 2024-06-23 11:58 | XMS_ITS ---
Author Organization [facility] Address [address] [place] [address] Care Team Providers Care Information Assoc Name Role Phone Unavailable Unavailable Unavailable Surgery Details Not on file Complications Check Surgery Details section. Procedure Estimated Blood Loss Check Surgery Details section. Procedure Findings Check Surgery Details section. Procedure Specimens Taken Check Surgery Details section.
--- OUTSIDE RECORDS SUMMARY | 2024-06-23 11:58 | XMS_ITS | Referral Summary ---
Author Organization [facility] Address [address] [place] [id number] Care Team Providers Care Social Human Services Assistants Name Role Phone Elsewhere, Pcp Primary Care Provider Unavailabl e Source Comments Patient records contain information from all sites at [facility]. For routine questions regarding patient records, call [phone] during business hours, M-F 8:00 AM - 5:00 PM Central Time. Record requests for emergency care only can be directed to [phone] at any time.[facility] Allergies Active Allergy Reactions Criticality Noted Date Comments Infliximab Hives (Reselect Reaction),Itching,Ra sh,Swelling High 04/08/2016 numbness Nsaids (Non-Steroidal Anti-Inflammatory Drug) Other (see comments) 12/27/2022 Crohns, ulcerative colitis Medications Medication Sig Dispensed Refills Start Date End Date Status vit calc,iron,folic ( VITAMIN ORAL) Take 1 tablet by mouth daily. Active adalimumab (HUMIRA PEN) 40 mg/0.8 mL pen injector kit 40 mg. 11/22/2016 Active escitalopram (LEXAPRO) 10 mg tablet Take 10 mg by mouth daily. Active norelgestromin-ethiny l estradiol (XULANE) 150-35 mcg/[address] 1 patch on the skin once a week. Apply 1 patch each week for 3 weeks, then remove for 1 week. Active HYDROcodone-acetamino phen (NORCO) 5-325 mg per tabletIndications:Acu te Pain Take 1 tablet by mouth every 6 (six) hours as needed for pain Indication: Acute Pain. 12 tablet 01/02/2023 Active Active Problems Problem Noted Date Diagnosed Date Gallstone 12/27/2022 Overview (12/27/2022): Added automatically from request for surgery [id number] Colitis Ulcerative Social History Tobacco Use Types Packs/Day Years Used Date Smoking Tobacco: Former Smokeless Tobacco: Never Tobacco Cessation:Counseling Given: Not Answered Alcohol Use Standard Drinks/Week Comments Yes 1 (1 standard drink = 0.6 oz pur e alcohol) Nutrition Answer Date Recorded Nutrition: EVOO Fat Source Unknown 01/26 Nutrition: Servings of Fruits/Vegetables per Day Not on file 01/26/2021 Dental Answer Date Recorded Dental: Regular Dentist Unknown 01/27/20 21 Sex and Gender Information Value Date Recorded Sex Assigned at Not on file Gender Identity Not on file Sexual Orientation Not on file Last Filed Vital Signs Vital Sign Reading Time Taken Comments Blood Pressure 117/73 01/09/2023 7:15 PM FRAME TABLE OPERATOR HELPER Pulse 76 01/09/2023 7:15 PM FRAME TABLE OPERATOR HELPER Temperature 37.2 ??C (99 ??F) 01/09/2023 4:35 PM FRAME TABLE OPERATOR HELPER Respiratory Rate 18 12/27/2022 6:15 PM FRAME TABLE OPERATOR HELPER Oxygen Saturation 98% 01/09/2023 7:15 PM FRAME TABLE OPERATOR HELPER Inhaled Oxygen Concentration - - Weight 68.4 kg (150 lb 12.7 oz) 01/09/2023 4:36 PM FRAME TABLE OPERATOR HELPER Height 162.6 cm (5' 4) 01/09/2023 4:36 PM FRAME TABLE OPERATOR HELPER Body Mass Index 25.88 01/09/2023 4:36 PM FRAME TABLE OPERATOR HELPER Plan of Treatment Not on file Medical Devices Implanted Type Area Welder Oxyhydrogen Device Identifier Shelf Expiration Date Model / Serial / Lot Clp Hmol Plmr Lg - [id number] Implanted:Qt y: 6 on 12/27/2022 by Daniel Shirley M.D. at [facility] Hardware e.g. pins/screws /rods N/A: [employer] [id number] 01/08/2026 [id number] / / [id number] Advance Directives For more information, please contact: [phone] * Full Code (Latest Code Status on File) Date Activated Date Inactivated Comments 12/27/2022 1:28 PM 12/27/2022 8:46 PM Question Answer Comments Full Code: Discussed Care Teams Social Human Services Assistants Relationship Specialty Start Date End Date Elsewhere, Pcp PCP - General 12/13/19
--- OUTSIDE RECORDS SUMMARY | 2024-06-23 11:58 | XMS_ITS | Clinical Summary ---
Author Organization [facility] Address [address] [place] [address] Care Team Providers Care Student Development Specialist Name Role Phone Elsewhere, Pcp Primary Care Provider Unavailabl e Source Comments Patient records contain information from all sites at [facility]. For routine questions regarding patient records, call [phone] during business hours, M-F 8:00 AM - 5:00 PM Central Time. Record requests for emergency care only can be directed to [phone] at any time.[facility] Allergies Active Allergy Reactions Criticality Noted [...] (12/27/2022): Added automatically from request for surgery [id number] Colitis Ulcerative Social History Tobacco Use Types [...] Comments Blood Pressure 117/73 01/09/2023 7:15 PM SPECIAL WARFARE COMBATANT CREWMAN Pulse 76 01/09/2023 7:15 PM SPECIAL WARFARE COMBATANT CREWMAN Temperature 37.2 ??C (99 ??F) 01/09/2023 4:35 PM SPECIAL WARFARE COMBATANT CREWMAN Respiratory Rate 18 12/27/2022 6:15 PM SPECIAL WARFARE COMBATANT CREWMAN Oxygen Saturation 98% 01/09/2023 7:15 PM SPECIAL WARFARE COMBATANT CREWMAN Inhaled Oxygen Concentration - - Weight 68.4 kg (150 lb 12.7 oz) 01/09/2023 4:36 PM SPECIAL WARFARE COMBATANT CREWMAN Height 162.6 cm (5' 4) 01/09/2023 4:36 PM SPECIAL WARFARE COMBATANT CREWMAN Body Mass Index 25.88 01/09/2023 4:36 PM SPECIAL WARFARE COMBATANT CREWMAN Plan of Treatment Health Maintenance Due Date Last Done Comments Cervical Cancer Screening 1985 HIV Screening 1985 Hepatitis C Screening 1985 Lipid (Cholesterol) Screening 1985 Pneumococcal vaccine (0-64 years) (1 of 2 - PCV) 1991 Hepatitis B Vaccines (1 of 3 - 19+ 3-dose series) 2004 COVID-19 Vaccine (3 - Modern a risk series) 02/16/2021 01/19/2021, 12/22/2020 Depression Screening (Annual PHQ-2) 11/24/2023 Influenza Vaccine (#1) 2024 DTaP,Tdap,and Td Vaccines (4 - Td or Tdap) 11/09/2029 11/09/2019, 02/16/2018, 04/24/2016 HPV Vaccines Aged Out No longer eligi ble based on patient's age to complete this topic Medical Devices Implanted Type Area Janitorial Cleaner Device Identifier Shelf Expiration Date Model / Serial / Lot Clp Hmol Plmr Lg - [id number] Implanted:Qt y: 6 on 12/27/2022 by Daniel Shirley M.D. at [facility] Hardware e.g. pins/screws /rods N/A: [employer] [id number] 01/08/2026 [id number] / / [id number] Advance Directives For more information, please contact: [phone] * Full Code (Latest Code Status on File) Date Activated Date Inactivated Comments 12/27/2022 1:28 PM 12/27/2022 8:46 PM Question Answer Comments Full Code: Discussed Care Teams Student Development Specialist Relationship Specialty Start Date End Date Elsewhere, Pcp PCP - General 12/13/19
--- OUTSIDE RECORDS SUMMARY | 2024-06-23 12:00 | XMS_ITS | Clinical Summary ---
Author Organization [facility] Address [address] [place] [address] Care Team Providers Care Kitchen Operator Name Role Phone No Ref-Primary, Physician Primary Care Provider Allergies Active Allergy Reactions Criticality Noted Date Comments Infliximab Hives,Other (See Comments),Itching,Rash,S welling High 01/09/2016 Other reaction(s): Other: RASH/HIVES/NUMB numbness numbness Medications Medication Sig Dispensed Refills Start Date End Date Status Misc. Devices (BREAST PUMP) MISCIndications:S/ P section 1 each as needed 1 each 05/03/2018 Active adalimumab (HUMIRA) 40 MG/0.8ML prefilled syringe kit Inject 40 mg Subcutaneous every 7 days Active acetaminophen (TYLENOL) 325 MG tabletIndications: S/P section Take 2 tablets (650 mg) by mouth every 4 hours as needed for other (multimodal surgical pain management along with NSAIDS and opioid medication as indicated based on pain control and physical function.) 01/23/2020 Active norelgestromin-eth inyl estradiol (ORTHO EVRA) 150-35 MCG/24HR patch Place 1 patch onto the skin once a week Remove old patch and apply new patch onto the skin once a week for 3 weeks (21 days). Do not wear patch week 4 (days 22-28), then repeat. Active oxyCODONE (ROXICODONE) 5 MG tabletIndications: Anal fistula Take 1 tablet (5 mg) by mouth every 6 hours as needed for moderate to severe pain 18 tablet 04/06/2021 Active Active Problems Problem Noted Date Diagnosed Date S/P section 01/20/2020 Perirectal abscess 09/28/2019 Previous delivery, antepartum condition or complication 05/01/2018 Resolved Problems Problem Noted Date Diagnosed Date Resolved Date S/P section 05/01/2018 019 Immunizations Name Administration Dates Next Due TDAP Vaccine (Boostrix) 02/16/2018,04/24/2016 Social History Tobacco Use Types Packs/Day Years Used Date Smoking Tobacco: Former Cigarettes Q uit: 2011 Smokeless Tobacco: Never Alcohol Use Standard Drinks/Week Comments Yes 0 (1 standard drink = 0.6 oz pur e alcohol) 2 bottles of wine per week [place] Depression Scale Answer Date Recorded [place] Depression Score 0 01/22/2020 Last EPDS Self Harm Result Not on file Adolescent Education Answer Date Record ed Getting School Help Needed Not on file 09/07 Sex and Gender Information Value Date Recorded Sex Assigned at Not on file Gender Identity Not on file Sexual Orientation Not on file Last Filed Vital Signs Vital Sign Reading Time Taken Comments Blood Pressure 115/67 04/06/2021 3:05 PM CDT Pulse 94 04/06/2021 3:05 PM CDT Temperature 36.4 ??C (97.5 ??F) 04/06/2021 3 :05 PM CDT Respiratory Rate 16 04/06/2021 3:05 PM CDT Oxygen Saturation 99% 04/06/2021 3:0 5 PM CDT Inhaled Oxygen Concentration - - Weight 62.1 kg (136 lb 12.8 oz) 04/06/2021 9:19 AM CDT Height 162.6 cm (5' 4) 04/14/2020 1:43 PM CDT per patient Body Mass Index 23.48 04/14/2020 1:43 PM CDT Plan of Treatment Not on file Advance Directives For more information, please contact: [phone] * Full Code (Latest Code Status on File) Date Activated Date Inactivated Comments 09/28/2019 3:59 PM 09/29/2019 4:37 PM Question Answer Comments Code status determined by: Discussion with vimal nt/legal decision maker Care Teams Kitchen Operator Relationship Specialty Start Date End Date No Ref-Primary, Physician PCP - General 04/06/21
--- OUTSIDE RECORDS SUMMARY | 2024-06-23 12:00 | XMS_ITS | Clinical Summary ---
Author Organization [facility] Address [address] [place] [address] Care Team Providers Care Flasher Adjuster Name Role Phone Needs Pcp, Assignment Primary Care Provider [phone] Source Comments You are receiving this document as you are listed as the primary care provider,follow-up provider, or the patient has been referred to you for consultation.This is in compliance with the Medicare and[facility] E[facility] Incentive Program,which states Providers who transition their patient to another setting of careor provider of care or refers their patient to another provider of care shouldprovide summary care record for each transition of care or referral. [facility] Allergies Active Allergy Reactions Criticality Noted Date Comments Infliximab Rash,Itching,Swelling High 04/08/2016 Medications Medication Sig Dispensed Refills Start Date End Date Status HUMIRA PEN 40 MG/0.8ML pen injector INJECT 40 MG UNDER THE SKIN EVERY OTHER WEEK 6 Each 1 11/22/2016 Active Norelgestromin-Eth Estradiol (ORTHOEVRA) 150-35 MCG/24HR patchIndications:Enco unter for initial prescription of contraceptive pills Apply 1 Patch to skin once every week. Will need an appointment for further refills. Please call [phone] to schedule. 12 Patch 09/21/2021 Active Active Problems Problem Noted Date Diagnosed Date Anemia during in third trimester 11/10 Abnormal O'Haro glucose challenge test, ante 11/10/2019 Perirectal abscess 09/28/2019 Crohn's disease of colon without complication Previous section complicating 08/16/2019 Hemorrhoids 06/18/2019 Supervision of high risk , antepartum 0 06/18/2019 History of polyhydramnios 06/18/2019 Unplanned 06/18/2019 Atypical squamous cells of u ndetermined significance on cytologic smear of cervix (ASC-US) 12/24/2018 Overview: CCS Review: History: 11/2015: NILM HPV neg (per media review) 11/2018: ASCUS HPV neg Plan, per ASCCP guidelines: Repeat co-test in 3 years (2021) History of 12/16/2017 Overview: C/section x 3 Hereditary disease in family possibly affecting fetus, affecting management of mother in 02/16/2016 Overview: first child with tracheal kink requiring supplemental oxygen after Chronic universal ulcerative colitis 01/04/2008 Overview: Colitis Ulcerative Colitis Pancolonic Anxiety state 01/04/2008 Overview: Anxiety NOS Resolved Problems Problem Noted Date Diagnosed Date Resolved Date Anemia during in third trimester 02/17/2018 06/18/2019 Low-lying placenta in second trimester 12/16/2017 03/30/2018 Overview: The edge of the posterior placenta abuts the internal os. 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 Encounter for supervision of normal in second trimester 04/08/2016 12/16/2017 Constipation 04/08/2016 12/16/2017 Suspected damage to fetus fr om drugs, affecting management of mother 02/16/2016 8 Immunizations Name Administration Dates Next Due TDAP (BOOSTRIX) 04/24/2016 Tdap 11/09/2019,02/16/2018 Family History Medical History Relation Name Comments Depression Mother Depression Maternal Grandmother Diabetes Paternal Grandfather Relation Name Status Comments Father Alive Mother Alive Brother Alive Maternal Grandfather Alive Maternal Grandmother Alive Paternal Grandfather Alive Paternal Grandmother Alive Social History Tobacco Use Types Packs/Day Years Used Date Smoking Tobacco: Former Smokeless Tobacco: Never Comments:Quit smoking: Alcohol Use Standard Drinks/Week Comments Yes 0 (1 standard drink = 0.6 oz pur e alcohol) occ AUDIT-C Answer Date Recorded Q1: How often do you have a drink containing alc ohol? Never 03/24/2021 Average Number of Drinks Not on file 021 Frequency of Binge Drinking Not on file 11/2020 Depression Answer Date Recor ded Last EPDS Total Score 0 06/10/2020 Last EPDS Self Harm Result 0-->never 06/10 Sex and Gender Information Value Date Recorded Sex Assigned at Not on file Gender Identity Not on file Sexual Orientation Not on file Last Filed Vital Signs Vital Sign Reading Time Taken Comments Blood Pressure 102/64 03/24/2021 10:00 AM CDT Pulse 72 03/24/2021 10:00 AM CDT Temperature 37.1 ??C (98.8 ??F) 03/24/2021 10:00 AM C DT Respiratory Rate 16 03/24/2021 10:00 AM CDT Oxygen Saturation 98% 03/24/2021 10:00 AM CDT Inhaled Oxygen Concentration - - Weight 62.6 kg (138 lb) 03/24/2021 10:00 AM CDT Height 161.9 cm (5' 3.75) 03/24/2021 10:00 AM C DT Body Mass Index 23.87 03/24/2021 10:00 AM CDT Plan of Treatment Health Maintenance Due Date Last Done Comments Hep C Screening (Preventive Services) 1985 HepB (1) 2004 Adult Preventive Visit 12/09/2020 12/09/2018 Cervical Cancer Screening 12/09/2021 12/09/2018 COVID-19 Vaccine (3 - 2022-2 4 season) 2023 01/19/2021, 12/22/2020 Influenza (#1) 2024 DTaP/Tdap/Td (4 - Tdap) 11/09/2029 11/09/20 19, 02/16/2018, 04/24/2016 Zoster/Shingles (1 of 2) 2035 HIV Screening (Preventive Services) Completed 06/18/2019, 09/26/2017 HPV Vaccine Aged Out No longer eligi ble based on patient's age to complete this topic HepA Aged Out No longer eligi ble based on patient's age to complete this topic Hib Aged Out No longer eligi ble based on patient's age to complete this topic IPV (Polio) Aged Out No longer eligi ble based on patient's age to complete this topic MCV4 Aged Out No longer eligi ble based on patient's age to complete this topic Pneumococcal Aged Out No longer eligi ble based on patient's age to complete this topic Procedures Procedure Name Priority Date/Time Associated Diagnosis Comments HIV 1/2 AG/AB 4TH GEN Routine 06/18/2019 1:57 PM CDT Screening examination for venereal disease ANATOMICAL PATH LIQUID BASED Routine 12/09/2018 3:02 PM BANJO REPAIRER from Last 3 Months or Most Recently Relevant to Health Maintenance Results * HIV 1/2 Ag/Ab 4th Generation (06/18/2019 1:57 PM CDT) HIV 1/2 Antigen/Antib evie (4th generation) Negative (Non Reactive) Negative (Non Reactive) 06/18/2019 7:44 PM CDT [facility] Comment:HIV-1 p24 Antigen an d HIV-1/HIV-2 Antibody not detected Blood Venipuncture / Unknown 06/18/2019 1:57 PM CDT 06/18/2019 1:57 PM CDT Ashley Connolly APRN, CNP LAB_1 Performing Organization Address City/State/[facility] Co de Phone Number [facility] [address] * Pap Smear (12/09/2018 3:02 PM BANJO REPAIRER) 12/09/2018 3:02 PM BANJO REPAIRER Narrative PN SOFT - 12/22/2018 2:17 PM BANJO REPAIRER FINAL GYNECOLOGICAL CYTOLOGY REPORT Pathology #: [id number] ?Date Obtained: 12/09/2018 ? Date Received: 12/10/2018 INTERPRETATION/RESULTS: Atypical squamous cells of undetermined significance (ASCUS). If requested and applicable, HPV testing will be performed and reported separately, per ACOG guidelines. SPECIMEN ADEQUACY: Satisfactory for Evaluation. ??Endocervical cells/transformation zone component present. Verified on 12/22/2018 ??by JARROD KIMBLE MD (electronic signature) CLINICAL NOTES: ?Abnormal bleeding: No, LMP: 12/05/18, Menstrual status: None ?Apply, Current form of therapy: None apply LIQUID BASED PAP SMEAR SPECIMEN TYPE: ?ROUTINE CERVICAL PAP TEST PLEASE NOTE: The pap smear is a screening test designed to aid in the detection of cervical cancer and its precursor lesions. It is not a diagnostic procedure and should not be used as the sole means of detecting cervical cancer. Both false-positive and false-negative reports may occur. Performed at [facility], [address] [place] [address] Ashley Connolly APRN, CORNELIO LAB_1 PN IL[facility] [address] [place] [address] from Last 3 Months or Most Recently Relevant to Health Maintenance Care Teams Flasher Adjuster Relationship Specialty Start Date End Date Needs PcpBrady [facility], [place] [address] PCP - General 07/31/22
--- OUTSIDE RECORDS SUMMARY | 2024-06-23 12:00 | XMS_ITS | Encounter Summary ---
Author Organization [facility] Address [address] [place] [address] Care Team Providers Care Vp Of Global Marketing Name Role Phone Leia Birmingham DO Primary Care Provider [phone] Ney Deleon MD Primary Care Provider [phone] No Ref-Primary, Physician Primary Care Provider Encounter Details Date Type Department Care Team (Late st Contact Info) Description 04/24/2018 Orders Only [facility] [address] [place] [id number] Leia Birmingham DO [address] [place], [place] [id number] Pre-operative laboratory examination (Primary Dx) Social History Tobacco Use Types Packs/Day Years Used Date Smoking Tobacco: Never Smokeless Tobacco: Never Alcohol Use Standard Drinks/Week Comments No 0 (1 standard drink = 0.6 oz pur e alcohol) Sex and Gender Information Value Date Recorded Sex Assigned at Not on file Gender Identity Not on file Sexual Orientation Not on file documented as of this encounter Plan of Treatment Not on file documented as of this encounter Visit Diagnoses Diagnosis Pre-operative laboratory examination- Primary Pre-procedural laboratory examination documented in this encounter Additional Health Concerns Infection Onset Date Last Indicated Resolved Time Rule Out COVID-19 04/12/2020 04/12/2020 04/13/2020 9:12 AM CDT documented as of this encounter Care Teams Vp Of Global Marketing Relationship Specialty Start Date End Date Leia Birmingham DO PCP - General home health registered nurse 04/16/18 09/26/19 Ney Deleon MD PCP - General home health registered nurse 09/27/19 04/05/21 No Ref-Primary, Physician PCP - General 04/06/21 documented as of this encounter
--- OUTSIDE RECORDS SUMMARY | 2024-06-23 12:00 | XMS_ITS | Encounter Summary ---
Author Organization [place] Address [address] [place] [address] Care Team Providers Care Rotary Adjuster Name Role Phone Leia Birmingham DO Primary Care Provider Ney Deleon MD Primary Care Provider [phone] No Ref-Primary, Physician Primary Care Provider Encounter Details Date Type Department Care Team (Late st Contact Info) Description 04/24/2018 Orders Only [facility] [address] [place] [phone] Leia Birmingham DO [address], [place] [id number] Pre-operative laboratory examination (Primary Dx) Social History [...] on file documented as of this encounter Results * ABO/Rh type and screen (04/30/2018 10:26 AM CDT) ABO O 04/30/2018 11:10 AM CDT [facility] RH(D) Pos [facility] Antibody Screen Neg 04/30/2018 11:10 AM CDT [facility] Test Valid Only At [facility] 04/30/2018 10:47 AM CDT [facility] Specimen Expires 05/03/2018 04/30/2018 10:47 AM CDT [facility] Blood specimen (specimen) 04/30/2018 10:26 AM CDT 04/30/2018 10:27 AM CDT Leia Birmingham DO LAB - BLOOD BANK TE ST ORDER Performing Organization Address [facility] Co de Phone Number [facility] [address] [place] [address], [facility] [phone] * Treponema Abs w Reflex to RPR and Titer (04/30/2018 10:26 AM CDT) Treponema Antibodies Nonreactive NR^Nonrea ctive 04/30/2018 3:24 PM CDT [facility] Blood specimen (specimen) 04/30/2018 10:26 AM CDT 04/30/2018 10:27 AM CDT Leia Birmingham DO LAB - BLOOD ORDERAB LES Performing Organization Address [facility] Co de Phone Number [facility] [address] [place] [address] * (ABNORMAL) Hemoglobin (04/30/2018 10:26 AM CDT) Hemoglobin 10.9(L) 11.7 - 15.7 g/dL 04/30/2018 10:31 AM CDT [facility] Blood specimen (specimen) 04/30/2018 10:26 AM CDT 04/30/2018 10:27 AM CDT Leia Birmingham DO LAB - BLOOD ORDERAB LES Performing Organization Address [facility] Co de Phone Number [facility] [address] [place] [address], [facility] [phone] documented in this encounter Visit Diagnoses Diagnosis Pre-operative laboratory examination- Primary Pre-procedural laboratory examination documented in this encounter Additional Health Concerns Infection Onset Date Last Indicated Resolved Time Rule Out COVID-19 04/12/2020 04/12/2020 04/13/2020 9:12 AM CDT documented as of this encounter Care Teams Rotary Adjuster Relationship Specialty Start Date End Date Leia Birmingham DO PCP - General pneumatic system conveyor operator 04/16/18 09/26/19 Ney Deleon MD PCP - General pneumatic system conveyor operator 09/27/19 04/05/21 No Ref-Primary, Physician PCP - General 04/06/21 documented as of this encounter
--- OUTSIDE RECORDS SUMMARY | 2024-06-23 12:00 | XMS_ITS | Clinical Summary ---
Author Organization [facility] Address [place], [place] [address] Care Team Providers Care Thread Checker Name Role Phone Pcp, No Primary Care Provider Unavailabl e Allergies Active Allergy Reactions Criticality Noted Date Comments Infliximab Hives,Other - Descri be In Comment Field 06/19/2016 numbness Medications Medication Sig Dispensed Refills Start Date End Date Status PNV WITH CA8/IRON/FA/LMEFOL ATE (PNV-IRON ORAL) Take 1 Tab by mouth once daily. Active valACYclovir (VALTREX) 1 gram tablet Take 1 g by mouth once daily. Active polyethylene glycol (MIRALAX) 17 g powder for solution Take 1 Packet by mouth once daily if needed for Constipation. Active ADALIMUMAB (HUMIRA SUBQ) Inject subcutaneous. Acti ve oxyCODONE-acetamin ophen, 5-325 mg, (PERCOCET) 5-325 mg per tabletIndications: S/P repeat low transverse Take 1-2 tablets by mouth every 4 hours if needed for Pain Max acetaminophen dose: 4000mg in 24 hrs. 30 tablet 06/30/2016 Active ferrous sulfate, 65 mg elemental, tabletIndications: Other iron deficiency anemia Take 1 tablet by mouth once daily with a meal. 30 tablet 06/30/2016 Active sennosides-docusat e, 8.6-50 mg, (SENOKOT S) 8.6-50 mg tabletIndications: S/P repeat low transverse Take 1 tablet by mouth 2 times daily. 0 06/30/2016 Active Breast Pump - PurchaseIndication s: disorder For home use. Gestation age at delivery: 37 weeks. Reason for need: separation, breast feeding. Length of need: 6 months 1 Device 0 06/30/2016 Active Breast Pump-RentalIndicat ions: disorder For home use. Gestation age at delivery: 37 weeks. Reason for need: separation, breast feeding. Length of need: 6 months 1 Device 0 06/30/2016 Active Breast Pump - PurchaseIndication s: symptom For home use. Gestation age at delivery: 37 weeks. Reason for need: support. Length of need: 1-12 months 1 Device 0 07/01/2016 Active ondansetron (ZOFRAN) 4 mg tabletIndications: Nausea Take 1 tablet by mouth every 8 hours if needed for Nausea/Vomiting. 30 tablet 07/01/2016 Active Active Problems Problem Noted Date Diagnosed Date S/P repeat low transverse 06/28/2016 Supervision of high-risk 06/11/2016 Overview: 06/11/2016: Per Dr. Davis/NICU: PHYSICIAN OFFICE SPECIALIST to attend delivery to evaluate airway/passages. Most likely Nursery. NEXT VISIT ALERTS: Needs PHQ-9 Is she on iron? (last hgb 04/24/16 = 10.3) + HSV, needs prophylaxis PNR notes +GBS UTI along with labs but we do not have actual copy of these labs or op note from c/section. WIll need to sign GEMMA for clinic/Hospital in [place] if we need PRIMARY DIAGNOSIS: Polyhydramnios/LGA *previous child with poly in and tracheal kink requiring supplemental oxygen. No further problems. Ulcerative colitis (On Humira) LAST GROWTH: 06/11/2016 EFW 3013gm at 93% 6lbs 10z at 34w4d ELIUD: 39.42/Stomach Present TESTING PLANS: Weekly DEPRESSION SCREEN Initial screen: Date PHQ-9 score: : Date PHQ-9 score: Previous history of depression or anxiety? NO YES GEMMA: GEMMA signed for [facility]: REFERRING PHYSICIAN: Dr. Tali Coats: Stacey Dhillon Updated 06/11/2016 msl SPECIALISTS: [facility] Last seen 04/2016 CARE COORDINATION: Angelita Araya RN/Kacey Self RN/Halima Masterson RN [phone] CONSULTS: Declined PSA 06/11/2016 *presented at juli/jh rounds 06/13/16 PROCEDURES: MEDS: Humira PERTINENT/ABNORMAL LABS: Blood type: O positive Last pap: Initial Hgb 12.5 Hgb 28 wk 10.3 Hgb 36 wk Repeat hgb anemic and compliant every 4 wks if/until >11.0 ACTIVITY RESTRICTIONS: NURSING: Tdap vaccine: Date given: 04/24/16 Treponema Pallidum: Date drawn:04/24/16 non reactive Non BMI 21.8 Optimal wt gain 25-35# Plan for Gestational Diabetes screening: Screened 04/24/16 @ 27+ wks = 115 GENETICS: Date: Counselor: Plan: DELIVERY PLANS: CHECKLIST FOR SCHEDULING PROCEDURES: Procedure: C/ Hospital: [facility] Unit: L&D Date & Time of procedure: 06/28/2016 0930 Pertinent information: Previous with extreme polyhydramnios Gestational age on procedure date? 37 MD doing procedure: Dr. Medardo BURNETT ?? Date scheduled: 06/11/2016 ?? Scheduling MD & RN: Dr. Chavez/LEANN Leyva Hospitalist Delivery-Jaida Fall notified? Yes H&P and Plan in chart??? LESLI on 06/19 ?? [facility] appointment made for H&P with RESOURCE ROOM TEACHER one week before procedure? Yes? DATE: [facility] MD notified via [employer] inbox??? Not Applicable ?? On [facility] calendar??? Not Applicable Amnio needed? No Amnio scheduled? No Does NICU need notification? Yes? NICU notification done: Yes PPTL permit signed? No Patient notified of procedure date? Yes Written admission instructions given to patient??? No MD PLAN OF CARE: Polyhydramnios in third trimester 06/11/2016 Maternal care for excessive growth in thir d trimester 06/11/2016 History of delivery affecting 06/11/2016 Immunizations Name Administration Dates Next Due Tdap, Unspecified 04/24/2016 Social History Tobacco Use Types Packs/Day Years Used Date Smoking Tobacco: Never Alcohol Use Standard Drinks/Week Comments No 0 (1 standard drink = 0.6 oz pur e alcohol) Sex and Gender Information Value Date Recorded Sex Assigned at Not on file Gender Identity Not on file Sexual Orientation Not on file Obstetrics History Para Term AB IAB SAB Ectopic Multiple Livin g Live Births 4 3 3 0 1 0 0 0 0 3 3 Date Outcome GA Total Labor Labor/2nd/3rd Weight Sex Type Anes PTL Miryma A1 A5 Name Clin 7 Term 39w 0d 3.68 kg (8 lb 2 oz) F Vag-S pont Livin g 0 AB 10w 0d Complications:Triploidy synd aileen,H/O dilation and curettage 3 Term 39w 0d 4 kg (8 lb 13 oz) F CS-LT ranv Livin g Complications:Intraamniotic Infection,Polyhydramnios 2015 Term 37w 0d 3.39 kg (7 lb 7.6 oz) M C-Sec tion Spinal Livin g 8 9 CHRISTIANO GIFFORD,BB GIANNI Batres; Dr. Roseanna stewart Complications:None Delivery Location:[facility] Last Filed Vital Signs Vital Sign Reading Time Taken Comments Blood Pressure 101/51 07/01/2016 9:49 AM CDT Pulse 83 07/01/2016 9:49 AM CDT Temperature 36.8 ??C (98.2 ??F) 07/01/2016 9:49 AM CD T Respiratory Rate 12 07/01/2016 9:49 AM CDT Oxygen Saturation 100% 07/01/2016 9:49 AM CDT Inhaled Oxygen Concentration - - Weight 73.7 kg (162 lb 8 oz) 06/28/2016 7:30 AM CDT Height 162.6 cm (5' 4) 06/28/2016 7:55 AM CDT Body Mass Index 27.89 06/28/2016 7:30 AM CDT Plan of Treatment Health Maintenance Due Date Last Done Comments HIV for age 15-65 2000 BMI (ht and wt on same day) for age 18+ 2003 Hepatitis C screening for ag e 18-79 2003 Depression screening for age 12+ 06/19/2017 06/19/2016 COVID-19 vaccine series (2022- season) 2023 Influenza for age 9-49 07/25/2024 Pap test for age 21-65 01/06/2026 3, 01/06/2023 Tetanus booster 04/24/2026 04/24/2016 Tdap Completed 04/24/2016 Pneumococcal series for age 6-64 Aged Out No longer eligible b ased on patient's age to complete this topic Procedures Procedure Name Priority Date/Time Associated Diagnosis Comments HPV THIN PREP Routine 01/06/2023 4:45 PM MELTING FURNACE SKIMMER from Last 3 Months or Most Recently Relevant to Health Maintenance Results * HPV HIGH RISK (01/06/2023 4:45 PM MELTING FURNACE SKIMMER) TYPE 16 Negative Negative 01/09/2023 2:23 PM MELTING FURNACE SKIMMER [facility] TYPE 18 Negative Negative 01/09/2023 2:23 PM MELTING FURNACE SKIMMER [facility] OTHER HIGH RISK TYPES Negative Negative 01/09/2023 2:23 PM MELTING FURNACE SKIMMER [facility] Other (Cervical/Vagina l) 01/06/2023 4:45 PM MELTING FURNACE SKIMMER 01/08/2023 9:37 AM MELTING FURNACE SKIMMER Narrative [facility] - 01/09/2023 2:23 PM MELTING FURNACE SKIMMER HPV types 16, 18, 31, 33, 35, 39, 45, 51, 52, 56, 58, 59, 66 and 68 DNA were undetectable or below the pre-set threshold. Methodology: Faina Jarod 4800 HPV Test Darby Gillis PA-C MICROBIOLOGY [facility] [address] [place] [address], from Last 3 Months or Most Recently Relevant to Health Maintenance Advance Directives * Full Code (Latest Code Status on File) Date Activated Date Inactivated Comments 06/28/2016 10:19 AM 07/01/2016 1:07 PM Question Answer Comments Code Status Discussion: Per Existing Order * Full Code Date Activated Date Inactivated Comments 06/28/2016 7:52 AM 06/28/2016 10:19 AM Question Answer Comments Code Status Discussion: Not Discussed Care Teams Thread Checker Relationship Specialty Start Date End Date Pcp, No . PCP - General 06/20/16
--- OUTSIDE RECORDS SUMMARY | 2024-06-23 12:00 | XMS_ITS | Referral Summary ---
Author Organization [place] Address [address] [place] [address] Care Team Providers Care Director Web Name Role Phone No Ref-Primary, Physician Primary [...] alcohol) 2 bottles of wine per week Sycamore Depression Scale Answer Date Recorded [place]ore Depression Score 0 01/22/2020 Last EPDS Self [...] Advance Directives For more information, please contact: [phone] * Full Code (Latest Code Status on File) Date Activated Date Inactivated Comments 09/28/2019 3:59 PM 09/29/2019 4:37 PM Question Answer Comments Code status determined by: Discussion with vimal nt/legal decision maker Care Teams Director Web Relationship Specialty Start Date End Date No Ref-Primary, Physician PCP - General 04/06/21
== END 2024-06-23 11:55 | disposition home or self-care (01) ==
PROVIDERS: PCP Physician Assistant Medical; Visit Provider Physician Assistant Medical
DX: K50.913 Crohn's disease, unspecified, with fistula (principal)
CPT/HCPCS: 80053; 84443

== ENCOUNTER 2025-01-26 12:11 | Outpatient (CLI) | payer OTHER, SELFPAY | END 2025-01-26 12:12 | disposition home or self-care (01) | PROVIDERS: PCP Physician Assistant Medical; Visit Provider Physician Assistant Medical | DX: R21 Rash and other nonspecific skin eruption (principal); Z11.3 Encounter for screening for infections with a predominantly sexual mode of transmission | CPT/HCPCS: 80076; 86592; 86703; 86803; 87529 ==